=== PATIENT | male | born 1950 | race Caucasian/White ===

== ENCOUNTER 2018-03-25 11:24 | Observation (INO) | payer BC, OTHER ==
[~2018-03-25] VITALS: Ht 175.3 cm; Wt 108.5 kg
[~2018-03-25 11:24] MED LIST: ASCORBIC ACID500 M3 PO; ASPIRIN325 MG PO; ASPIRIN81 M2 PO; CENTRUM SILVER1 EAC3 PO; CITRACAL + D C1 EACH PO; CO Q-1010 MG PO; EFFIENT10 MG PO; FISH OIL; FISH OIL 1,2001 EAC3 PO; FOLIC ACID PO; GLUCOSAMINE HC500 MG PO; GLUCOSAMINE-MS1 EAC1 PO; LISINOPRIL2.5 MG PO; METOPROLOL SUCC25 MG PO; METOPROLOL SUCC50 MG PO; MSM1500 MG PO; MULTIVITAMIN1 EAC1 PO; MULTIVITAMIN1 EAC2 PO; NIACIN; NIACIN1000 MG PO; NIASPAN,SLO-NI500 MG PO; PLAVIX75 MG PO; SELENIUM; SELENIUM PO; SIMVASTATIN40 MG PO; SIMVASTATIN80 M1 PO; SIMVASTATIN80 MG PO; TICLID PO; TICLID250 MG PO; WELCHOL625 MG PO; ZEGERID; ZESTRIL,PRINIV2.5 MG PO; ZESTRIL,PRINIVI10 MG PO; ZOCOR; [UNRECOGNIZED DRUG - OTHER] PO
[2018-03-25 12:17] LABS: BASOPHIL (%) 0.7 % (0-1); EOSINOPHIL (%) 1.4 % (0-5); EOSINOPHIL COUNT 0.1 K/uL (0-0.3); HEMATOCRIT 43.5 % (38.0-50.0); HEMOGLOBIN 14.5 G/DL (12.5-16.6); IMMATURE GRANULOCYTE (%) 0.3 % (0.0-0.7); LYMPHOCYTE (%) 29.5 % (15-42); LYMPHOCYTE COUNT 1.7 K/uL (1.0-2.8); MCH 29.4 PG (29.0-34.0); MCHC 33.3 G/DL (30.0-36.0); MCV 88.1 FL (86-99); MONOCYTE (%) 8.4 % (3-12); MONOCYTE COUNT 0.5 K/uL (0-0.8); NEUTROPHIL (%) 59.7 % (45-76); NEUTROPHIL COUNT 3.5 K/uL (1.8-6.4); PLATELET COUNT 185 K/uL (156-360); RBC DIS.WIDTH-CV 13.2 % (11.8-14.6); RBC DIS.WIDTH-SD 42.7 % (39-53); RED BLOOD COUNT 4.94 M/uL (4.00-5.50); WHITE BLOOD COUNT 5.9 K/uL (4.1-10.2)
[2018-03-25 12:38] LABS: CHLORIDE 106 mEq/L (99-109); POTASSIUM 4.5 mEq/L (3.7-5.4); SODIUM 140 mEq/L (136-147)
[2018-03-25 12:39] LABS: GLUCOSE 103 mg/dL (70-99)
[2018-03-25 12:40] LABS: TROP-I INTERPRETATION NEGATIVE; TROPONIN-I < 0.01 ng/mL (0.0-0.30)
[2018-03-25 12:43] LABS: GFR ESTIMATE (CALCULATED) > 59 mL/min/ (58.99-99999)
[2018-03-25 12:44] LABS: UREA NITROGEN (BUN) 22 mg/dL (9-23)
[2018-03-25 14:29] VITALS: BP 121/73
[2018-03-25] MEDS ORDERED: FISH OIL 1,0001 EAC7 PO (16:07)
[2018-03-25] MEDS ORDERED: MULTIVITAMIN1 EAC2 PO (16:07)
[2018-03-25 19:02] VITALS: BP 109/68
[2018-03-25 19:20] LABS: TROP-I INTERPRETATION NEGATIVE; TROPONIN-I 0.02 ng/mL (0.0-0.30)
[2018-03-25 23:57] VITALS: BP 115/67
[2018-03-26 01:16] LABS: TROP-I INTERPRETATION NEGATIVE; TROPONIN-I 0.01 ng/mL (0.0-0.30)
[2018-03-26 04:15] VITALS: BP 106/63
[2018-03-26 08:06] VITALS: BP 112/67
[2018-03-26 11:11] VITALS: BP 127/87
== END 2018-03-26 11:47 | disposition home or self-care (01) ==
LOC: EME 11:24 → ENRESERV 13:23 → CANRESERV 13:23 → 4SOUTH 13:24 → EDOF 13:24 → ENRESERV 13:32 → 4SOUTH 14:04
PROVIDERS: Emergency Medicine; Hospitalist
DX: R00.2 Palpitations (principal); I25.10 Atherosclerotic heart disease of native coronary artery without angina pectoris; Z95.1 Presence of aortocoronary bypass graft; I10 Essential (primary) hypertension; E78.5 Hyperlipidemia, unspecified; E78.00 Pure hypercholesterolemia, unspecified; Z95.5 Presence of coronary angioplasty implant and graft; Z82.49 Family history of ischemic heart disease and other diseases of the circulatory system; Z79.82 Long term (current) use of aspirin; Z91.041 Radiographic dye allergy status
CPT/HCPCS: 71046; 80048; 84484; 85025; 93005; 99281; 99284; G0378